=== PATIENT | female | born 1945 | race African-American/Black ===

== ENCOUNTER 2017-08-22 09:54 | Emergency (ER) | payer MEDICARE, MEDICAID ==
[~2017-08-22] VITALS: Ht 160 cm; Wt 101.4 kg
[~2017-08-22 09:54] MED LIST: CARV12 PO; FURO20 PO; HYDR25TA PO; ISOS30TA6 PO; KDUR10 PO; LEVO500 PO; LOSA100T29 PO; METF500T4 PO; PANT40TA25 PO; PRAV40TA4 PO
[2017-08-22] MEDS ORDERED: AMLO-511 PO (10:03)
[2017-08-22] MEDS ORDERED: CARV25 PO (10:03)
[2017-08-22 11:34] LABS: BASOPHILS % (AUTO) 0.5 % (0.0-2.0); EOSINOPHILS % (AUTO) 1.8 % (1.0-6.0); HEMATOCRIT 41.9 % (36-46); LYMPHOCYTES # (AUTO) 1.1 K/uL (1.0-4.8); LYMPHOCYTES % (AUTO) 20.1 % (22.0-44.0); MEAN CORPUSCULAR HEMOGLOBIN 29.4 pg (26.0-34.0); MEAN CORPUSCULAR HGB CONC 33.5 G/dL (31.0-37.0); MEAN CORPUSCULAR VOLUME 88 fL (80-100); MONOCYTES # (AUTO) 0.8 K/uL (0.1-1.0); MONOCYTES % (AUTO) 15.4 % (2.0-9.0); NEUTROPHILS # (AUTO) 3.4 K/uL (1.8-7.7); NEUTROPHILS % (AUTO) 62.2 % (40.0-70.0); PLATELET COUNT (AUTO) 158 K/uL (150-450); RED BLOOD CELL COUNT(AUTO) 4.77 MIL/uL (4.00-5.20)
[2017-08-22 11:49] LABS: ANION GAP 7 mmol/L (8-16); CALCIUM, TOTAL 9.3 mg/dL (8.8-10.5); CARBON DIOXIDE 30 mmol/L (22-29); CHLORIDE 104 mmol/L (98-107); CREATININE 1.67 mg/dL (0.60-1.30); GLOMERULAR FILTR. RATE CALC 36 mL/min (>60); GLUCOSE,RANDOM 123 mg/dL (70-110); POTASSIUM 4.2 mmol/L (3.5-5.1); SODIUM SERUM 141 mmol/L (136-145); UREA NITROGEN, BLOOD 26 mg/dL (7-18)
[2017-08-22 11:52] LABS: PROTHROMBIN TIME 10.1 SEC (9.4-11.6)
[2017-08-22 12:11] LABS: B-TYPE NATRIURETIC PEPTIDE 156 pg/mL (0-100)
[2017-08-22 12:24] LABS: ALANINE AMINOTRANSFERASE 14 U/L (12-78); ALBUMIN 3.3 g/dL (3.4-5.0); ALKALINE PHOSPHATASE 92 U/L (46-116); ASPARTATE AMINOTRANSFERASE 14 U/L (15-37); BILIRUBIN,TOTAL 1.1 mg/dL (0.1-1.0); CREATINE KINASE, TOTAL 93 U/L (26-192); LIPASE 109 U/L (73-393); TOTAL PROTEIN, SERUM 7.5 g/dL (6.4-8.2)
[2017-08-22 12:43] LABS: APPEARANCE,URINE CLOUDY (CLEAR); BILIRUBIN,URINE NEGATIVE (NEGATIVE); GLUCOSE, URINE (UA) NEGATIVE (NEGATIVE); KETONES,URINE NEGATIVE (NEGATIVE); LEUKOCYTE ESTERASE ,URINE SMALL (NEGATIVE); NITRATE,URINE NEGATIVE (NEGATIVE); OCCULT BLOOD,URINE NEGATIVE (NEGATIVE); PH,URINE 5.5 (5.0-8.0); PROTEIN,URINE POS 1+ (NEGATIVE); UROBILINOGEN,URINE 0.2 mg/dL (<=1.0)
[2017-08-22 12:45] LABS: CREATINE KINASE MB 1.4 ng/mL (0-5)
[2017-08-22 12:52] LABS: RBC,URINE None Seen /HPF (0-2)
[2017-08-22 12:53] LABS: BACTERIA,URINE Few /HPF (None Seen); SQUAMOUS EPITHELIAL CELL,UR Moderate /LPF (None Seen)
[2017-08-22 13:50] VITALS: BP 145/75
== END 2017-08-22 14:17 | disposition home or self-care (01) ==
LOC: EMS 09:55
DX: R53.1 Weakness (principal); I10 Essential (primary) hypertension; E11.9 Type 2 diabetes mellitus without complications; R06.02 Shortness of breath; R42 Dizziness and giddiness; F12.10 Cannabis abuse, uncomplicated; Z86.73 Personal history of transient ischemic attack (TIA), and cerebral infarction without residual deficits; Z87.891 Personal history of nicotine dependence
CPT/HCPCS: 93005; 99285

== ENCOUNTER 2018-08-31 09:57 | Emergency (ER) | payer MEDICARE, MEDICAID ==
[~2018-08-31] VITALS: Ht 160 cm; Wt 93.2 kg
[~2018-08-31 09:57] MED LIST changes: +ASPI81 PO; +ATOR20TA86 PO; -CARV12 PO; -FURO20 PO; -HYDR25TA PO; +ISOS1TAB2 PO; -ISOS30TA6 PO; -KDUR10 PO; -LEVO500 PO; -LOSA100T29 PO; -METF500T4 PO; +METO-558 PO; -PANT40TA25 PO; -PRAV40TA4 PO; +TICA90TA PO
[2018-08-31 11:14] LABS: BASOPHILS % (AUTO) 0.4 % (0.0-2.0); EOSINOPHILS % (AUTO) 3.2 % (1.0-6.0); HEMATOCRIT 42.7 % (36-46); HEMOGLOBIN 13.8 g/dL (12.0-16.0); LYMPHOCYTES # (AUTO) 0.9 K/uL (1.0-4.8); LYMPHOCYTES % (AUTO) 14.7 % (22.0-44.0); MEAN CORPUSCULAR HEMOGLOBIN 29.4 pg (26.0-34.0); MEAN CORPUSCULAR HGB CONC 32.2 G/dL (31.0-37.0); MEAN CORPUSCULAR VOLUME 91 fL (80-100); MONOCYTES # (AUTO) 0.9 K/uL (0.1-1.0); MONOCYTES % (AUTO) 15.2 % (2.0-9.0); NEUTROPHILS # (AUTO) 4.1 K/uL (1.8-7.7); NEUTROPHILS % (AUTO) 66.5 % (40.0-70.0); PLATELET COUNT (AUTO) 210 K/uL (150-450); RED BLOOD CELL COUNT(AUTO) 4.68 MIL/uL (4.00-5.20)
[2018-08-31 11:24] LABS: PROTHROMBIN TIME 10.5 SEC (9.4-11.6)
[2018-08-31 12:25] VITALS: BP 92/62
== END 2018-08-31 12:30 | disposition home or self-care (01) ==
LOC: EMS 09:57
DX: R04.0 Epistaxis (principal); M79.671 Pain in right foot; M79.672 Pain in left foot; I11.0 Hypertensive heart disease with heart failure; I50.9 Heart failure, unspecified; E78.00 Pure hypercholesterolemia, unspecified; F12.90 Cannabis use, unspecified, uncomplicated; Z86.73 Personal history of transient ischemic attack (TIA), and cerebral infarction without residual deficits; Z87.891 Personal history of nicotine dependence; Z79.82 Long term (current) use of aspirin; Z79.899 Other long term (current) drug therapy

== ENCOUNTER 2019-07-02 11:01 | Emergency (ER) | payer MEDICARE, MEDICAID ==
[~2019-07-02] VITALS: Ht 165.1 cm; Wt 104.5 kg
[2019-07-02] MEDS ORDERED: SACU1TAB PO (11:09)
[2019-07-02] MEDS ORDERED: LOSA50TA64 PO (11:09)
[2019-07-02] MEDS ORDERED: CARV25 PO (11:09)
[2019-07-02] MEDS ORDERED: HYDR25TA PO (11:09)
[2019-07-02] MEDS ORDERED: AMLO10TA7 PO (11:09)
[2019-07-02 11:20] LABS: GLUCOSE,POINT OF CARE 99 MG/DL (70-110)
[2019-07-02 13:39] VITALS: BP 110/74
== END 2019-07-02 13:45 | disposition home or self-care (01) ==
LOC: EMS 11:02
DX: J06.9 Acute upper respiratory infection, unspecified (principal); R22.0 Localized swelling, mass and lump, head; F17.210 Nicotine dependence, cigarettes, uncomplicated; I11.0 Hypertensive heart disease with heart failure; I50.9 Heart failure, unspecified; E78.00 Pure hypercholesterolemia, unspecified; Z86.73 Personal history of transient ischemic attack (TIA), and cerebral infarction without residual deficits; Z79.82 Long term (current) use of aspirin